=== PATIENT | female | born 1945 | race Caucasian/White ===

== ENCOUNTER → 2016-08-23 | Outpatient (CLI) | payer MEDICARE ==
[~2016-08-23] MED LIST: L.AC1CAP6 PO; LEVO75TA5 PO; LOSA50TA6 PO; OMEP40CA6 PO; OMNIPAQUE 350 MG/ML, 100ML BOTTLE ONE; ONDA4TAB10 PO; TRAM50TA2 PO; TRAZ100T15 PO
== END | disposition home or self-care (01) ==
LOC: CFH 11:37
PROVIDERS: ATTEND Surgery
DX: K31.6 Fistula of stomach and duodenum (principal); Z90.49 Acquired absence of other specified parts of digestive tract; Z98.84 Bariatric surgery status; Z98.890 Other specified postprocedural states; K63.89 Other specified diseases of intestine
CPT/HCPCS: 74160; 82565; Q9967

== ENCOUNTER 2016-09-01 19:34 | Emergency (ER) | payer MEDICARE ==
[~2016-09-01] VITALS: Ht 154.9 cm; Wt 90.0 kg
[~2016-09-01 19:34] MED LIST changes: -OMNIPAQUE 350 MG/ML, 100ML BOTTLE ONE
[2016-09-01] MEDS ORDERED: ONDANSETRON 2MG/ML, 2ML IVPush ONE ×2 (20:00→23:00)
[2016-09-01] MEDS ORDERED: FAMOTIDINE 20 MG/2 ML IVP ONE (20:00)
[2016-09-01] MEDS ORDERED: SODIUM CHLORIDE FLUSH 10ML SYR IVF ONE (20:00)
[2016-09-01] MEDS ORDERED: MAALOX/HYOSCYAMINE/LIDOCAINE 45 ML BOTTLE PO ONE (20:00)
[2016-09-01] MEDS ORDERED: GABA300C10 PO (20:05)
[2016-09-01] MEDS ORDERED: LOSA25TA2 PO (20:05)
[2016-09-01] MEDS ORDERED: OMEP20TA62 PO (20:05)
[2016-09-01] MEDS ORDERED: LEVO88TA4 PO (20:05)
[2016-09-01 20:22] LABS: HEMOGLOBIN 10.9 g/dL (11.7-16.4)
[2016-09-01] MEDS ORDERED: MAALOX/HYOSCYAMINE/LIDOCAINE 45 ML BOTTLE ONE (20:31)
[2016-09-01] MEDS ORDERED: FAMOTIDINE 20 MG/2 ML ONE (20:32)
[2016-09-01] MEDS ORDERED: ONDANSETRON 2MG/ML, 2ML ONE (20:32)
[2016-09-01 20:39] LABS: ASPARTATE AMINO TRANSFERASE 192 U/L (15-37); BLOOD UREA NITROGEN 14 mg/dL (7-18)
[2016-09-01] MEDS ORDERED: OMNIPAQUE 350 MG/ML, 100ML BOTTLE ONE (22:30)
[2016-09-01 22:33] LABS: IS PT STATUS REG ER OR PRE ER? YES
[2016-09-01] MEDS ORDERED: MORPHINE SULFATE 4 MG/ML, 1ML ONE (22:54)
[2016-09-01] MEDS ORDERED: MORPHINE SULFATE 4 MG/ML, 1ML IVPush PRN ×2 (23:00)
[2016-09-01 23:49] VITALS: BP 153/65
== END 2016-09-01 23:50 | disposition home or self-care (01) ==
LOC: ED 23:36
DX: K29.00 Acute gastritis without bleeding (principal); I10 Essential (primary) hypertension; E03.9 Hypothyroidism, unspecified; K21.9 Gastro-esophageal reflux disease without esophagitis; Z90.49 Acquired absence of other specified parts of digestive tract; Z87.891 Personal history of nicotine dependence
CPT/HCPCS: 36415; 74177; 76700; 80053; 81003; 83690; 84484; 85025; 93005; 96374; 96375; 99285; J2405; Q9967; S0028

== ENCOUNTER 2017-01-29 09:57 | Inpatient (IN) | payer MEDICARE ==
[~2017-01-29] VITALS: Ht 149.9 cm; Wt 88.3 kg
[~2017-01-29 09:57] MED LIST changes: +CHOL200040 PO; +GABA300C10 PO; +LEVO88TA4 PO; +LOSA25TA2 PO; +OMEP20TA62 PO
[2017-01-29] MEDS ORDERED: SODIUM CHLORIDE 0.9% 1,000 ML IV ONE (10:32)
[2017-01-29] MEDS ORDERED: SODIUM CHLORIDE FLUSH 10ML SYR IVF ONE (11:00)
[2017-01-29 11:03] LABS: PATH.CAST-FLAG NOT PRESENT; SPERM-FLAG NOT PRESENT; SRC-FLAG NOT PRESENT; XTAL-FLAG NOT PRESENT; YLC-FLAG NOT PRESENT
[2017-01-29 11:10] LABS: HEMATOCRIT 37.6 % (34.6-47.8); HEMOGLOBIN 12.2 g/dL (11.7-16.4); WHITE BLOOD COUNT 9.3 x10^3/uL (3.4-10)
[2017-01-29 11:22] LABS: ASPARTATE AMINO TRANSFERASE 40 U/L (15-37); BLOOD UREA NITROGEN 12 mg/dL (7-18)
[2017-01-29] MEDS ORDERED: SODIUM CHLORIDE 0.9% 1,000 ML IV SCH (14:15)
[2017-01-29] MEDS ORDERED: ONDANSETRON 2MG/ML, 2ML IVPush PRN (14:30)
[2017-01-29] MEDS ORDERED: ENOXAPARIN 40 MG/0.4 ML ONE (14:56)
[2017-01-29] MEDS ORDERED: POTASSIUM CHLORIDE 20 MEQ TAB.ER.PRT ONE (14:56)
[2017-01-29 14:59] LABS: ASPARTATE AMINO TRANSFERASE 34 U/L (15-37); BLOOD UREA NITROGEN 11 mg/dL (7-18)
[2017-01-29] MEDS ORDERED: POTASSIUM CHLORIDE 20 MEQ TAB.ER.PRT PO ONE (15:00)
[2017-01-29] MEDS: ENOXAPARIN 40 MG/0.4 ML SQ SCH (15:14)
[2017-01-29 15:37] LABS: HEMATOCRIT 39.4 % (34.6-47.8); HEMOGLOBIN 12.9 g/dL (11.7-16.4); WHITE BLOOD COUNT 11.4 x10^3/uL (3.4-10)
[2017-01-29] MEDS ORDERED: CHOLECALCIFEROL PO SCH (16:00)
[2017-01-29] MEDS: SODIUM CHLORIDE 0.9% 1,000 ML IV SCH (18:25)
[2017-01-29 19:26] VITALS: BP 138/75
[2017-01-29] MEDS ORDERED: MAGNESIUM SULFATE PMX 4GM/100M 100 ML IV ONE (22:00)
[2017-01-29] MEDS: CHOLECALCIFEROL 1,000 UNIT TABLET PO SCH (22:17)
[2017-01-29] MEDS: TRAZODONE 100MG TABLET PO SCH (22:17)
[2017-01-30 00:50] VITALS: BP 129/78
[2017-01-30] MEDS: LEVOTHYROXINE 75 MCG TABLET PO SCH (05:04)
[2017-01-30] MEDS: SODIUM CHLORIDE 0.9% 1,000 ML IV SCH ×4 (05:05→22:15)
[2017-01-30 07:07] VITALS: BP 138/82
[2017-01-30] MEDS: CHOLECALCIFEROL 1,000 UNIT TABLET PO SCH ×3 (08:59→20:29)
[2017-01-30] MEDS ORDERED: POTASSIUM CHLORIDE 20 MEQ TAB.ER.PRT PO ONE (13:00)
[2017-01-30 13:27] LABS: BLOOD UREA NITROGEN 9 mg/dL (7-18)
[2017-01-30] MEDS: ENOXAPARIN 40 MG/0.4 ML SQ SCH (14:46)
[2017-01-30 15:29] VITALS: BP 125/78
[2017-01-30] MEDS: OMEPRAZOLE 20 MG CAPSULE.DR PO SCH (17:52)
[2017-01-30] MEDS ORDERED: LOPERAMIDE 2 MG CAPSULE PO ONE (19:00)
[2017-01-30 20:07] VITALS: BP 103/64
[2017-01-30] MEDS: TRAZODONE 100MG TABLET PO SCH (20:30)
[2017-01-31 08:18] LABS: ASPARTATE AMINO TRANSFERASE 9 U/L (15-37); BLOOD UREA NITROGEN 8 mg/dL (7-18); HEMATOCRIT 32.8 % (34.6-47.8); HEMOGLOBIN 10.7 g/dL (11.7-16.4)
[2017-01-31] MEDS ORDERED: LOPERAMIDE 2 MG CAPSULE PO SCH (09:00)
[2017-01-31] MEDS ORDERED: LOSARTAN 50MG TABLET PO SCH (09:00)
[2017-01-31] MEDS: LEVOTHYROXINE 75 MCG TABLET PO SCH (09:05)
[2017-01-31] MEDS: CHOLECALCIFEROL 1,000 UNIT TABLET PO SCH (09:06)
[2017-01-31] MEDS: OMEPRAZOLE 20 MG CAPSULE.DR PO SCH (09:06)
[2017-01-31] MEDS ORDERED: LOPE2CAP PO (09:10)
== END 2017-01-31 11:45 | disposition home or self-care (01) | DRG 392 ==
LOC: ED 11:47 → EDIP 13:22 → 5SO 18:16 → DCLOUNGE 01-31 11:30
PROVIDERS: ADMIT Hospitalist; ATTEND Hospitalist
DX: R19.7 Diarrhea, unspecified (principal); E44.1 Mild protein-calorie malnutrition; I10 Essential (primary) hypertension; D64.9 Anemia, unspecified; E11.9 Type 2 diabetes mellitus without complications; E03.9 Hypothyroidism, unspecified; E87.6 Hypokalemia; E86.0 Dehydration; K21.9 Gastro-esophageal reflux disease without esophagitis; M17.0 Bilateral primary osteoarthritis of knee; Z82.49 Family history of ischemic heart disease and other diseases of the circulatory system; Z87.891 Personal history of nicotine dependence; Z98.84 Bariatric surgery status; Z90.49 Acquired absence of other specified parts of digestive tract; Z88.8 Allergy status to other drugs, medicaments and biological substances; Z68.39 Body mass index [BMI] 39.0-39.9, adult
CPT/HCPCS: 36415; 76700; 80048; 80053; 81001; 82040; 83690; 83735; 85025; 87086; 87324; 87328; 87329; 89055; 96372; J1650; J3475; J7030

== ENCOUNTER → 2017-02-06 | Outpatient (CLI) | payer MEDICARE ==
[~2017-02-06] MED LIST changes: +LOPE2CAP PO; +OMNIPAQUE 350 MG/ML, 100ML BOTTLE ONE
== END | disposition home or self-care (01) ==
LOC: CFH 13:06
PROVIDERS: ATTEND Nurse Practitioner Family
DX: K57.30 Diverticulosis of large intestine without perforation or abscess without bleeding (principal); K59.8 Other specified functional intestinal disorders; M51.36 Other intervertebral disc degeneration, lumbar region; R19.7 Diarrhea, unspecified; Z98.84 Bariatric surgery status; Z90.49 Acquired absence of other specified parts of digestive tract
CPT/HCPCS: 74177; Q9967

== ENCOUNTER → 2017-02-20 | Outpatient (CLI) | payer MEDICARE ==
[~2017-02-20] MED LIST changes: -OMNIPAQUE 350 MG/ML, 100ML BOTTLE ONE
== END | disposition home or self-care (01) ==
LOC: CFH 10:42
PROVIDERS: ATTEND Nurse Practitioner Family
DX: Z12.31 Encounter for screening mammogram for malignant neoplasm of breast (principal); M81.0 Age-related osteoporosis without current pathological fracture; N95.8 Other specified menopausal and perimenopausal disorders
CPT/HCPCS: 77080; G0202

== ENCOUNTER → 2017-02-21 | Outpatient (CLI) | payer MEDICARE | END | disposition home or self-care (01) | LOC: CFH 09:48 | PROVIDERS: ATTEND Nurse Practitioner Family | DX: M25.512 Pain in left shoulder (principal); M25.511 Pain in right shoulder ==

== ENCOUNTER → 2017-04-20 | Outpatient (CLI) | payer MEDICARE | END | disposition home or self-care (01) | LOC: CFH 09:48 → MERGE 10:15 | PROVIDERS: ATTEND Family Medicine | DX: M51.36 Other intervertebral disc degeneration, lumbar region (principal); M51.26 Other intervertebral disc displacement, lumbar region; M51.27 Other intervertebral disc displacement, lumbosacral region; M47.896 Other spondylosis, lumbar region; M25.551 Pain in right hip; M25.552 Pain in left hip | CPT/HCPCS: 72148; 73523 ==

== ENCOUNTER → 2018-03-15 | Outpatient (CLI) | payer MEDICARE ==
[~2018-03-15] MED LIST changes: -LOSA50TA6 PO; +LOSA50TA7 PO; +TRAZ-137 PO; -TRAZ100T15 PO
== END | disposition home or self-care (01) ==
LOC: RAD 07:28
PROVIDERS: ATTEND Family Medicine
DX: K25.9 Gastric ulcer, unspecified as acute or chronic, without hemorrhage or perforation (principal); K31.84 Gastroparesis
CPT/HCPCS: 74245

== ENCOUNTER → 2018-03-29 | Outpatient (CLI) | payer MEDICARE ==
[2018-03-29 13:52] LABS: BASOPHILS # (AUTO) 0.04 x10^3/uL (0-0.1); BASOPHILS % (AUTO) 1 % (0-1); EOSINOPHILS # (AUTO) 0.12 x10^3/uL (0-0.4); EOSINOPHILS % (AUTO) 2 % (1-7); LYMPHOCYTES # (AUTO) 2.82 x10^3/uL (1-3.4); LYMPHOCYTES % (AUTO) 36 % (22-44); MD NO; MEAN CORPUSCULAR HEMOGLOBIN 29.9 pg (27.0-34.8); MEAN CORPUSCULAR HGB CONC 33.2 g/dL (32.4-35.8); MEAN CORPUSCULAR VOLUME 90.1 fL (80-100); MEAN PLATELET VOLUME 7.2 fL (7.4-10.4); MONOCYTES # (AUTO) 0.52 x10^3/uL (0.2-0.8); MONOCYTES % (AUTO) 7 % (2-9); NEUTROPHILS # (AUTO) 4.29 x10^3/uL (1.8-6.8); NEUTROPHILS % (AUTO) 55 % (42-75); PLATELET COUNT 282 x10^3/uL (130-400); RED BLOOD COUNT 4.48 x10^6/uL (3.82-5.3); RED CELL DISTRIBUTION WIDTH 15.8 % (9.6-15.2)
[2018-03-29 14:01] LABS: INTERNATIONAL NORMALIZED RATIO 0.96 (0.93-1.1); PROTHROMBIN TIME 9.9 Seconds (9.6-11.5)
[2018-03-29 14:05] LABS: ALANINE AMINOTRANSFERASE 16 U/L (12-78); ALBUMIN 3.3 g/dL (3.4-5.0); ANION GAP 7 mmol/L (5-15); CALCIUM 8.5 mg/dL (8.5-10.1); CHLORIDE 109 mmol/L (98-107); CREATININE 0.98 mg/dL (0.55-1.02)
[2018-03-29 14:08] LABS: % IRON SATURATION 15 % (20-55); ALKALINE PHOSPHATASE 122 U/L (45-117); BILIRUBIN,TOTAL 0.5 mg/dL (0.2-1.0); IRON LEVEL 57 mcg/dL (50-170); TOTAL IRON BINDING CAPACITY 386 mcg/dL (250-450); TOTAL PROTEIN 7.1 g/dL (6.4-8.2)
== END | disposition home or self-care (01) ==
LOC: LAB 13:30
PROVIDERS: ATTEND Family Medicine
DX: D64.9 Anemia, unspecified (principal); R42 Dizziness and giddiness
CPT/HCPCS: 36415; 80053; 82150; 82728; 83540; 83550; 83690; 85025; 85610

== ENCOUNTER 2018-04-01 12:16 | Inpatient (IN) | payer MEDICARE ==
[~2018-04-01] VITALS: Ht 152.4 cm; Wt 90.5 kg
[2018-04-01 13:39] LABS: BASOPHILS # (AUTO) 0.06 x10^3/uL (0-0.1); BASOPHILS % (AUTO) 1 % (0-1); EOSINOPHILS # (AUTO) 0.11 x10^3/uL (0-0.4); EOSINOPHILS % (AUTO) 2 % (1-7); LYMPHOCYTES # (AUTO) 2.31 x10^3/uL (1-3.4); LYMPHOCYTES % (AUTO) 33 % (22-44); MD NO; MEAN CORPUSCULAR HEMOGLOBIN 30.3 pg (27.0-34.8); MEAN CORPUSCULAR HGB CONC 33.5 g/dL (32.4-35.8); MEAN CORPUSCULAR VOLUME 90.4 fL (80-100); MEAN PLATELET VOLUME 7.4 fL (7.4-10.4); MONOCYTES # (AUTO) 0.56 x10^3/uL (0.2-0.8); MONOCYTES % (AUTO) 8 % (2-9); NEUTROPHILS # (AUTO) 3.96 x10^3/uL (1.8-6.8); NEUTROPHILS % (AUTO) 57 % (42-75); PLATELET COUNT 264 x10^3/uL (130-400); RED BLOOD COUNT 4.31 x10^6/uL (3.82-5.3); RED CELL DISTRIBUTION WIDTH 16.1 % (9.6-15.2)
[2018-04-01 13:50] LABS: ALANINE AMINOTRANSFERASE 16 U/L (12-78); ANION GAP 9 mmol/L (5-15); CALCIUM 8.1 mg/dL (8.5-10.1); CHLORIDE 110 mmol/L (98-107); CREATININE 0.83 mg/dL (0.55-1.02)
[2018-04-01 13:52] LABS: ALKALINE PHOSPHATASE 122 U/L (45-117); BILIRUBIN,TOTAL 0.3 mg/dL (0.2-1.0); TOTAL PROTEIN 6.8 g/dL (6.4-8.2)
[2018-04-01] MEDS ORDERED: MECLIZINE CHEWABLE 25 MG TAB ONE (15:18)
[2018-04-01] MEDS ORDERED: ONDANSETRON ODT 4 MG ONE (15:19)
[2018-04-01] MEDS ORDERED: MAALOX/HYOSCYAMINE/LIDOCAINE 45 ML BTL ONE (15:19)
[2018-04-01] MEDS ORDERED: MECLIZINE CHEWABLE 25 MG TAB PO ONE (15:30)
[2018-04-01] MEDS ORDERED: MAALOX/HYOSCYAMINE/LIDOCAINE 45 ML BTL PO ONE (15:30)
[2018-04-01] MEDS ORDERED: ONDANSETRON ODT 4 MG PO ONE (15:30)
[2018-04-01] MEDS ORDERED: NS + 20MEQ KCL 1,000 ML IV SCH (16:20)
[2018-04-01] MEDS ORDERED: morphine SULFATE 10 MG/ML, 1ML IVPush PRN (16:30)
[2018-04-01] MEDS ORDERED: LABETALOL 5MG/ML, 20ML IVPush PRN (16:30)
[2018-04-01] MEDS ORDERED: ACETAMINOPHEN 325 MG TABLET PO PRN (16:30)
[2018-04-01] MEDS ORDERED: DOCUSATE 100 MG CAPSULE PO PRN (16:30)
[2018-04-01] MEDS ORDERED: ONDANSETRON 2MG/ML, 2ML IVPush PRN (16:30)
[2018-04-01] MEDS ORDERED: MECLIZINE CHEWABLE 25 MG TAB PO PRN (16:30)
[2018-04-01] MEDS ORDERED: hydrALAzine 20 MG/ML, 1ML IV PRN (16:30)
[2018-04-01] MEDS ORDERED: ENALAPRILAT 1.25 MG/ML, 2ML IV PRN (16:30)
[2018-04-01] MEDS ORDERED: POLYETHYLENE GLYCOL 17 GM PACKET PO PRN (16:30)
[2018-04-01] MEDS ORDERED: HYDROcodone/APAP 5/325 TABLET PO PRN (16:30)
[2018-04-01 17:24] LABS: MICROSCOPIC AUTO
[2018-04-01 17:33] LABS: CULTURE INDICATED? YES
[2018-04-01] MEDS ORDERED: OMNIPAQUE 350 MG/ML, 100ML BOTTLE ONE (17:41)
[2018-04-01 18:01] VITALS: BP 129/60
[2018-04-01 19:36] VITALS: BP 136/68
[2018-04-01] MEDS: TRAZODONE 100MG TABLET PO SCH (20:03)
[2018-04-01] MEDS: OMEPRAZOLE 20 MG CAPSULE.DR PO SCH (20:06)
[2018-04-02 01:55] VITALS: BP 114/71
[2018-04-02 05:31] LABS: ANION GAP 7 mmol/L (5-15); CALCIUM 7.6 mg/dL (8.5-10.1); CHLORIDE 112 mmol/L (98-107)
[2018-04-02 05:32] LABS: CREATININE 0.89 mg/dL (0.55-1.02)
[2018-04-02 06:46] VITALS: BP 134/66
[2018-04-02] MEDS ORDERED: PROPOFOL 10 MG/ML, 20ML ONE (10:49)
[2018-04-02] MEDS ORDERED: FENTANYL PF 100 MCG/2ML ONE (10:49)
[2018-04-02] MEDS ORDERED: MIDAZOLAM 1 MG/ML, 2ML ONE (10:49)
[2018-04-02] MEDS ORDERED: MORPHINE SULFATE 4 MG/ML, 1ML IVPush PRN (11:00)
[2018-04-02] MEDS ORDERED: MEPERIDINE/PF 25MG/0.5ML IVPush PRN (11:00)
[2018-04-02] MEDS ORDERED: ACETAMINOPHEN 325 MG TABLET PO PRN (11:00)
[2018-04-02] MEDS ORDERED: FENTANYL PF 100 MCG/2ML IV PRN (11:00)
[2018-04-02] MEDS ORDERED: ONDANSETRON 2MG/ML, 2ML IV PRN (11:00)
[2018-04-02] MEDS ORDERED: OXYcodone 5 MG/5 ML ORAL.SOL UDC PO PRN (11:00)
[2018-04-02 12:40] VITALS: BP 122/57
[2018-04-02] MEDS: LOSARTAN 50MG TABLET PO SCH (13:49)
[2018-04-02] MEDS: OMEPRAZOLE 20 MG CAPSULE.DR PO SCH ×2 (13:49→20:19)
[2018-04-02] MEDS: SENNA/DOCUSATE TABLET PO SCH (13:49)
[2018-04-02] MEDS: LEVOTHYROXINE 88 MCG TABLET PO SCH (13:49)
[2018-04-02 19:49] VITALS: BP 126/74
[2018-04-02] MEDS: TRAZODONE 100MG TABLET PO SCH (20:19)
[2018-04-03 01:45] VITALS: BP 137/74
[2018-04-03 06:37] VITALS: BP 130/79
[2018-04-03] MEDS: LOSARTAN 50MG TABLET PO SCH (08:29)
[2018-04-03] MEDS: SENNA/DOCUSATE TABLET PO SCH (08:29)
[2018-04-03] MEDS: LEVOTHYROXINE 88 MCG TABLET PO SCH (08:29)
[2018-04-03] MEDS: OMEPRAZOLE 20 MG CAPSULE.DR PO SCH (08:29)
[2018-04-03 12:05] VITALS: BP 124/75
== END 2018-04-03 16:32 | disposition home health service (06) | DRG 92 ==
LOC: SUATTDRO 16:06 → ED 16:52 → EDIP 17:00 → 4EST 19:08 → DCLOUNGE 04-03 16:15
PROVIDERS: ADMIT Family Medicine; ATTEND Family Medicine
PROC: 0DJ08ZZ Inspection of Upper Intestinal Tract, Via Natural or Artificial Opening Endoscopic (ICD-10-PCS; principal; 2018-04-02 13:30)
DX: R27.0 Ataxia, unspecified (principal); E44.0 Moderate protein-calorie malnutrition; K21.9 Gastro-esophageal reflux disease without esophagitis; I10 Essential (primary) hypertension; E03.9 Hypothyroidism, unspecified; M19.90 Unspecified osteoarthritis, unspecified site; K76.89 Other specified diseases of liver; E61.1 Iron deficiency; E11.9 Type 2 diabetes mellitus without complications; M51.36 Other intervertebral disc degeneration, lumbar region; Z90.49 Acquired absence of other specified parts of digestive tract; Z98.84 Bariatric surgery status; Z82.49 Family history of ischemic heart disease and other diseases of the circulatory system; Z88.8 Allergy status to other drugs, medicaments and biological substances
CPT/HCPCS: 36415; 74177; 76700; 80048; 80053; 81001; 83690; 85025; 86677; 87086; 93005; 99285; G0378; J2250; J2405; J2704; J3010; J3480; Q0162; Q9967

== ENCOUNTER 2019-05-07 14:29 | Emergency (ER) | payer MEDICARE ==
[~2019-05-07] VITALS: Ht 152.4 cm; Wt 102.3 kg
[~2019-05-07 14:29] MED LIST changes: +LOSA50TA14 PO; -LOSA50TA7 PO; +OMEP40CA42 PO; -OMEP40CA6 PO
--- NOTE | 2019-05-07 16:34 | NUR ---
Patient resting in bed. IV access obtained.
[2019-05-07 16:49] LABS: BASOPHILS # (AUTO) 0.07 x10^3/uL (0-0.1); BASOPHILS % (AUTO) 1 % (0-1); EOSINOPHILS # (AUTO) 0.08 x10^3/uL (0-0.4); EOSINOPHILS % (AUTO) 1 % (1-7); LYMPHOCYTES # (AUTO) 2.48 x10^3/uL (1-3.4); LYMPHOCYTES % (AUTO) 25 % (22-44); MD NO; MEAN CORPUSCULAR HGB CONC 32.7 g/dL (32.4-35.8); MEAN CORPUSCULAR VOLUME 91.9 fL (80-100); MEAN PLATELET VOLUME 7.6 fL (7.4-10.4); MONOCYTES # (AUTO) 0.68 x10^3/uL (0.2-0.8); MONOCYTES % (AUTO) 7 % (2-9); NEUTROPHILS % (AUTO) 66 % (42-75); PLATELET COUNT 270 x10^3/uL (130-400); RED BLOOD COUNT 4.38 x10^6/uL (3.82-5.3); RED CELL DISTRIBUTION WIDTH 15.3 % (9.6-15.2)
[2019-05-07 16:53] LABS: ALBUMIN 3.1 g/dL (3.4-5.0); ANION GAP 5 mmol/L (5-15); CALCIUM 8.8 mg/dL (8.5-10.1); CHLORIDE 114 mmol/L (98-107)
[2019-05-07 16:57] LABS: ALANINE AMINOTRANSFERASE 20 U/L (12-78); ALKALINE PHOSPHATASE 135 U/L (45-117); BILIRUBIN,TOTAL 0.4 mg/dL (0.2-1.0); CREATININE 1.01 mg/dL (0.55-1.02); TOTAL PROTEIN 7.1 g/dL (6.4-8.2)
[2019-05-07] MEDS ORDERED: OMNIPAQUE 350 MG/ML, 100ML BOTTLE ONE (17:26)
[2019-05-07] MEDS ORDERED: MECLIZINE CHEWABLE 25 MG TAB PO ONE (18:00)
[2019-05-07] MEDS ORDERED: DICYCLOMINE 20 MG TABLET PO ONE (18:00)
[2019-05-07] MEDS ORDERED: MECLIZINE CHEWABLE 25 MG TAB ONE (18:05)
[2019-05-07] MEDS ORDERED: DICYCLOMINE 20 MG TABLET ONE (18:05)
[2019-05-07 18:07] LABS: MICROSCOPIC NOT IND
--- NOTE | 2019-05-07 18:09 | NUR ---
Patient resting in bed. NAD noted. Reports abd cramping and vertigo. Medicated per order.
[2019-05-07 18:16] LABS: CULTURE INDICATED? NO
--- NOTE | 2019-05-07 18:37 | NUR ---
Patient discharged home, daughter with patient. Discharge instructions provided all questions and concerns addressed. Patient required standby preschool assistant to transfer to wheelchair. All belongings with patient. IV dc'd cath intact.
[2019-05-07 18:38] VITALS: BP 127/70
== END 2019-05-07 18:44 | disposition home or self-care (01) ==
LOC: ED 17:34
DX: R10.84 Generalized abdominal pain (principal); R53.83 Other fatigue; R19.7 Diarrhea, unspecified; R53.1 Weakness; I10 Essential (primary) hypertension; E03.9 Hypothyroidism, unspecified; K21.9 Gastro-esophageal reflux disease without esophagitis; Z90.89 Acquired absence of other organs; Z90.49 Acquired absence of other specified parts of digestive tract
CPT/HCPCS: 36415; 74177; 80053; 81003; 83690; 83735; 85025; 99284; Q9967

== ENCOUNTER → 2020-03-05 | Outpatient (CLI) | payer MEDICARE ==
[~2020-03-05] MED LIST changes: +OMNIPAQUE 350 MG/ML, 100ML BOTTLE ONE; -TRAZ-137 PO; +TRAZ-175 PO
== END | disposition home or self-care (01) ==
LOC: CFH 09:34
PROVIDERS: ATTEND Internal Medicine
DX: K44.9 Diaphragmatic hernia without obstruction or gangrene (principal); K76.89 Other specified diseases of liver; R19.09 Other intra-abdominal and pelvic swelling, mass and lump; M47.816 Spondylosis without myelopathy or radiculopathy, lumbar region; Z90.49 Acquired absence of other specified parts of digestive tract
CPT/HCPCS: 74177; Q9967

== ENCOUNTER 2020-03-19 06:07 | Day surgery (SDC) | payer MEDICARE ==
[~2020-03-19] VITALS: Ht 152.4 cm; Wt 101.0 kg
[~2020-03-19 06:07] MED LIST changes: -OMNIPAQUE 350 MG/ML, 100ML BOTTLE ONE
[2020-03-19] MEDS ORDERED: SODIUM CHLORIDE 0.9% 1,000 ML IV SCH (07:00)
[2020-03-19 07:20] VITALS: BP 179/73
[2020-03-19] MEDS ORDERED: NALOXONE 1 MG/ML, 2ML ONE (08:05)
[2020-03-19] MEDS ORDERED: MIDAZOLAM 1 MG/ML, 5ML ONE (08:05)
[2020-03-19] MEDS ORDERED: FLUMAZENIL 0.1 MG/1 ML, 5ML ONE (08:05)
[2020-03-19] MEDS ORDERED: FENTANYL PF 100 MCG/2ML ONE (08:05)
== END 2020-03-19 09:48 | disposition home or self-care (01) ==
LOC: OUT 06:07
PROVIDERS: ATTEND Internal Medicine
DX: R19.07 Generalized intra-abdominal and pelvic swelling, mass and lump (principal); Z91.040 Latex allergy status
CPT/HCPCS: 49180; 77012; 88305; 99156; 99157; J2250; J3010; J7030; J2310

== ENCOUNTER → 2020-04-01 | Outpatient (CLI) | payer MEDICARE | END | disposition home or self-care (01) | LOC: PETCFH 07:51 | PROVIDERS: ATTEND Internal Medicine | DX: C48.2 Malignant neoplasm of peritoneum, unspecified (principal); K44.9 Diaphragmatic hernia without obstruction or gangrene | CPT/HCPCS: 78815; A9552 ==

== ENCOUNTER → 2020-07-13 | Outpatient (CLI) | payer MEDICARE ==
[~2020-07-13] MED LIST changes: +OMNIPAQUE 350 MG/ML, 100ML BOTTLE ONE
== END | disposition home or self-care (01) ==
LOC: CFH 12:07
PROVIDERS: ATTEND Surgery
DX: K44.9 Diaphragmatic hernia without obstruction or gangrene (principal); K57.30 Diverticulosis of large intestine without perforation or abscess without bleeding; R93.3 Abnormal findings on diagnostic imaging of other parts of digestive tract; K76.89 Other specified diseases of liver
CPT/HCPCS: 74177; Q9967

== ENCOUNTER 2020-10-22 17:18 | Inpatient (IN) | payer MEDICARE ==
[~2020-10-22] VITALS: Ht 152.4 cm; Wt 99.1 kg
[~2020-10-22 17:18] MED LIST changes: -OMNIPAQUE 350 MG/ML, 100ML BOTTLE ONE
[2020-10-22] MEDS ORDERED: SODIUM CHLORIDE FLUSH 10ML SYR IVF ONE (18:00)
--- NOTE | 2020-10-22 18:38 | NUR ---
PT AMBULATORY TO ROOM 34 W/ C/OO MID EPIGASTRIC ABD PAIN STARTED 3 DAYS AGO AND BARBA. PT STATES SHE ALSO HAS HX GERD. STATES IT FEELS SIMILAR TO GERD. HAS HX ESOPHAGEAL TEAR. PT STATES SHE IS HAVING N/V W/ BILE. DENIES HEMATEMESIS. PT RESTING ON GURNEY. NADN. MONITORS APPLIED. VSS. WARM BLANKET PROVIDED. PIV INITIATED.
[2020-10-22] MEDS ORDERED: ONDANSETRON 2MG/ML, 2ML ONE ×2 (18:39→19:28)
[2020-10-22 18:50] LABS: MICROSCOPIC INDICATED
--- NOTE | 2020-10-22 18:51 | NUR ---
REPORT FROM ALISTAIR RICHARDSON
--- NOTE | 2020-10-22 18:51 | NUR ---
REPORT GIVEN TO SARA CRUZ RN'S.
[2020-10-22 18:55] LABS: BASOPHILS % (AUTO) 1 % (0-1); EOSINOPHILS % (AUTO) 1 % (1-7); LYMPHOCYTES % (AUTO) 33 % (22-44); MD NO; MEAN CORPUSCULAR HEMOGLOBIN 24.6 pg (27.0-34.8); MEAN CORPUSCULAR HGB CONC 32.1 g/dL (32.4-35.8); MEAN PLATELET VOLUME 7.5 fL (7.4-10.4); MONOCYTES % (AUTO) 8 % (2-9); NEUTROPHILS % (AUTO) 57 % (42-75); PLATELET COUNT 265 x10^3/uL (130-400); RED BLOOD COUNT 4.28 x10^6/uL (3.82-5.3); RED CELL DISTRIBUTION WIDTH 15.7 % (9.6-15.2)
[2020-10-22] MEDS ORDERED: ONDANSETRON 2MG/ML, 2ML IVPush ONE ×2 (19:00→19:30)
--- NOTE | 2020-10-22 19:03 | NUR ---
PT RESTING COMFORTABLY IN BED, FAMILY AT BEDSIDE, REQUEST PILLOW
[2020-10-22 19:04] LABS: ALBUMIN 3.3 g/dL (3.4-5.0); ANION GAP 5 mmol/L (5-15); CALCIUM 8.7 mg/dL (8.5-10.1); CHLORIDE 108 mmol/L (98-107)
[2020-10-22 19:11] LABS: ALANINE AMINOTRANSFERASE 12 U/L (12-78); ALKALINE PHOSPHATASE 136 U/L (45-117); BILIRUBIN,TOTAL 0.4 mg/dL (0.2-1.0); CREATININE 0.79 mg/dL (0.55-1.02); TOTAL PROTEIN 7.4 g/dL (6.4-8.2); TROPONIN I < 0.015 ng/mL (0.000-0.045)
--- NOTE | 2020-10-22 19:26 | NUR ---
PILLOW PROVIDER PER PT REQUEST
[2020-10-22] MEDS ORDERED: MORPHINE SULFATE 4 MG/ML, 1ML ONE (19:28)
[2020-10-22] MEDS ORDERED: FAMOTIDINE 20 MG/2 ML ONE (19:28)
[2020-10-22] MEDS ORDERED: MAALOX/HYOSCYAMINE/LIDOCAINE 45 ML BTL ONE (19:29)
[2020-10-22] MEDS ORDERED: FAMOTIDINE 20 MG/2 ML IVPush ONE (19:30)
[2020-10-22] MEDS ORDERED: MORPHINE SULFATE 4 MG/ML, 1ML IVPush PRN (19:30)
[2020-10-22] MEDS ORDERED: MAALOX/HYOSCYAMINE/LIDOCAINE 45 ML BTL PO ONE (19:30)
--- NOTE | 2020-10-22 19:30 | NUR ---
PT TO CT
[2020-10-22] MEDS ORDERED: OMNIPAQUE 350 MG/ML, 100ML BOTTLE ONE (19:34)
[2020-10-22] MEDS ORDERED: SODIUM CHLORIDE FLUSH 10ML SYR IVF PRN (21:30)
[2020-10-22] MEDS ORDERED: SODIUM CHLORIDE 0.9% 1,000 ML IV ONE (21:30)
[2020-10-22] MEDS ORDERED: CEFTRIAXONE 1,000 MG in DEXTROSE 5% 50 ML IVPB ONE (21:30)
--- NOTE | 2020-10-22 22:19 | NUR ---
REPORT TO SORIN RICHARDSON
[2020-10-22] MEDS ORDERED: LEVO100T5 PO (22:30)
[2020-10-22 23:33] VITALS: BP 174/81
[2020-10-23] MEDS ORDERED: BISACODYL 10 MG SUPP PR PRN (00:30)
[2020-10-23] MEDS ORDERED: ENOXAPARIN 40 MG/0.4 ML SQ SCH (00:30)
[2020-10-23] MEDS ORDERED: ACETAMINOPHEN 325 MG TABLET PO PRN (00:30)
[2020-10-23] MEDS ORDERED: MELATONIN 5 MG TABLET PO PRN (00:30)
[2020-10-23 02:00] VITALS: BP 141/67
[2020-10-23] MEDS: SODIUM CHLORIDE 0.9% 1,000 ML IV SCH ×3 (04:07→22:58)
[2020-10-23] MEDS ORDERED: SUCR1TAB PO (04:15)
[2020-10-23] MEDS ORDERED: PANT40TA3 PO (04:31)
[2020-10-23] MEDS ORDERED: GABA-826 PO (04:31)
[2020-10-23 06:12] LABS: BASOPHILS % (AUTO) 1 % (0-1); EOSINOPHILS % (AUTO) 1 % (1-7); LYMPHOCYTES % (AUTO) 39 % (22-44); MEAN CORPUSCULAR HEMOGLOBIN 24.9 pg (27.0-34.8); MEAN CORPUSCULAR HGB CONC 32.5 g/dL (32.4-35.8); MEAN PLATELET VOLUME 7.3 fL (7.4-10.4); MONOCYTES % (AUTO) 8 % (2-9); NEUTROPHILS % (AUTO) 51 % (42-75); PLATELET COUNT 217 x10^3/uL (130-400); RED BLOOD COUNT 3.62 x10^6/uL (3.82-5.3); RED CELL DISTRIBUTION WIDTH 15.9 % (9.6-15.2)
[2020-10-23 06:13] LABS: MD NO
[2020-10-23 06:18] LABS: ANION GAP 6 mmol/L (5-15); CALCIUM 7.9 mg/dL (8.5-10.1); CHLORIDE 112 mmol/L (98-107)
[2020-10-23 06:29] LABS: % IRON SATURATION 8 % (20-55); IRON LEVEL 29 mcg/dL (50-170); TOTAL IRON BINDING CAPACITY 383 mcg/dL (250-450)
[2020-10-23 06:43] LABS: FREE T4 (FREE THYROXINE) 0.86 ng/dL (0.76-1.46)
[2020-10-23 07:00] VITALS: BP 146/78
[2020-10-23] MEDS: LEVOTHYROXINE 100 MCG TABLET PO SCH (08:29)
[2020-10-23] MEDS: CEFTRIAXONE 1,000 MG in DEXTROSE 5% 50 ML IVPB SCH (08:50)
[2020-10-23] MEDS ORDERED: CEFTRIAXONE 1,000 MG in DEXTROSE 5% 50 ML IVPB SCH (09:30)
[2020-10-23] MEDS ORDERED: CALCIUM CARBONATE 500 MG TAB.CHEW PO PRN (09:30)
[2020-10-23] MEDS ORDERED: ONDANSETRON 2MG/ML, 2ML IVPush PRN (12:30)
[2020-10-23 12:42] VITALS: BP 159/77
[2020-10-23] MEDS: SUCRALFATE 1 GM/10 ML UDC PO SCH ×2 (17:42→20:47)
[2020-10-23] MEDS: METOCLOPRAMIDE 5 MG/ML, 2ML IVPush SCH ×2 (17:44→23:49)
[2020-10-23] MEDS ORDERED: MAALOX/HYOSCYAMINE/LIDOCAINE 45 ML BTL PO ONE (18:00)
[2020-10-23 20:35] VITALS: BP 147/77
[2020-10-23] MEDS: GABAPENTIN 300 MG CAPSULE PO SCH (20:47)
[2020-10-23] MEDS: TRAZODONE 100MG TABLET PO SCH (20:47)
[2020-10-23] MEDS: PANTOPRAZOLE 40 MG IV IVPush SCH (20:48)
[2020-10-23] MEDS: ENOXAPARIN 30 MG/0.3 ML SQ SCH (20:48)
[2020-10-24 02:05] VITALS: BP 149/77
[2020-10-24 06:07] LABS: BASOPHILS % (AUTO) 1 % (0-1); EOSINOPHILS % (AUTO) 2 % (1-7); LYMPHOCYTES % (AUTO) 40 % (22-44); MEAN CORPUSCULAR HGB CONC 32.1 g/dL (32.4-35.8); MEAN PLATELET VOLUME 7.2 fL (7.4-10.4); MONOCYTES % (AUTO) 10 % (2-9); NEUTROPHILS % (AUTO) 48 % (42-75); PLATELET COUNT 226 x10^3/uL (130-400); RED BLOOD COUNT 3.48 x10^6/uL (3.82-5.3); RED CELL DISTRIBUTION WIDTH 15.8 % (9.6-15.2)
[2020-10-24 06:09] LABS: MD NO
[2020-10-24 06:21] LABS: ALANINE AMINOTRANSFERASE 10 U/L (12-78); ALBUMIN 2.6 g/dL (3.4-5.0); ANION GAP 5 mmol/L (5-15); CALCIUM 8.4 mg/dL (8.5-10.1); CHLORIDE 113 mmol/L (98-107); CREATININE 0.75 mg/dL (0.55-1.02)
[2020-10-24 06:22] LABS: ALKALINE PHOSPHATASE 111 U/L (45-117); BILIRUBIN,TOTAL 0.3 mg/dL (0.2-1.0); TOTAL PROTEIN 5.9 g/dL (6.4-8.2)
[2020-10-24 07:04] VITALS: BP 171/81
[2020-10-24] MEDS: GABAPENTIN 300 MG CAPSULE PO SCH ×3 (08:23→21:32)
[2020-10-24] MEDS: LEVOTHYROXINE 100 MCG TABLET PO SCH (08:23)
[2020-10-24] MEDS: SUCRALFATE 1 GM/10 ML UDC PO SCH ×4 (08:29→21:32)
[2020-10-24] MEDS ORDERED: LABETALOL 5MG/ML, 20ML IVPush PRN (08:30)
[2020-10-24] MEDS: PANTOPRAZOLE 40 MG IV IVPush SCH ×2 (08:31→21:33)
[2020-10-24] MEDS: IRON SUCROSE COMPLEX 100MG/5ML IV SCH (08:37)
[2020-10-24] MEDS: ENOXAPARIN 30 MG/0.3 ML SQ SCH ×2 (08:40→21:33)
[2020-10-24] MEDS: CEFTRIAXONE 1,000 MG in DEXTROSE 5% 50 ML IVPB SCH (08:41)
[2020-10-24] MEDS ORDERED: FLUCONAZOLE 200 MG TABLET PO SCH (09:00)
[2020-10-24 12:00] VITALS: BP 169/67
[2020-10-24] MEDS: SODIUM CHLORIDE 0.9% 1,000 ML IV SCH (12:00)
[2020-10-24] MEDS: LOSARTAN 50MG TABLET PO SCH (13:33)
[2020-10-24 19:26] VITALS: BP 165/82
[2020-10-24] MEDS: TRAZODONE 100MG TABLET PO SCH (21:33)
[2020-10-25 01:40] VITALS: BP 120/44
[2020-10-25 02:09] VITALS: BP 136/64
[2020-10-25 06:41] LABS: BASOPHILS % (AUTO) 1 % (0-1); EOSINOPHILS % (AUTO) 2 % (1-7); LYMPHOCYTES % (AUTO) 37 % (22-44); MEAN CORPUSCULAR HEMOGLOBIN 24.9 pg (27.0-34.8); MONOCYTES % (AUTO) 9 % (2-9); NEUTROPHILS % (AUTO) 51 % (42-75); PLATELET COUNT 226 x10^3/uL (130-400); RED BLOOD COUNT 3.42 x10^6/uL (3.82-5.3); RED CELL DISTRIBUTION WIDTH 15.6 % (9.6-15.2)
[2020-10-25 06:43] LABS: MD NO
[2020-10-25 07:06] LABS: ANION GAP 4 mmol/L (5-15); CALCIUM 8.4 mg/dL (8.5-10.1); CHLORIDE 113 mmol/L (98-107)
[2020-10-25 07:07] LABS: CREATININE 0.82 mg/dL (0.55-1.02)
[2020-10-25 07:12] VITALS: BP 140/82
[2020-10-25] MEDS: LEVOTHYROXINE 100 MCG TABLET PO SCH (08:30)
[2020-10-25] MEDS: GABAPENTIN 300 MG CAPSULE PO SCH ×2 (08:30→16:51)
[2020-10-25] MEDS: ENOXAPARIN 30 MG/0.3 ML SQ SCH (08:30)
[2020-10-25] MEDS: CEFTRIAXONE 1,000 MG in DEXTROSE 5% 50 ML IVPB SCH (08:30)
[2020-10-25] MEDS: PANTOPRAZOLE 40 MG IV IVPush SCH (08:30)
[2020-10-25] MEDS: SUCRALFATE 1 GM/10 ML UDC PO SCH ×3 (08:30→16:51)
[2020-10-25] MEDS: IRON SUCROSE COMPLEX 100MG/5ML IV SCH (08:31)
[2020-10-25] MEDS: LOSARTAN 50MG TABLET PO SCH (08:31)
[2020-10-25 12:37] VITALS: BP 140/83
[2020-10-25] MEDS ORDERED: SUCR1ORA5 PO (14:47)
[2020-10-25] MEDS ORDERED: LOSA50TA2 PO (14:47)
[2020-10-25] MEDS ORDERED: PANTOPRAZOLE 40MG TABLET PO SCH (16:48)
== END 2020-10-25 23:02 | disposition home or self-care (01) | DRG 689 ==
LOC: ED 17:48 → EDIP 21:26 → 3N 23:11
PROVIDERS: ADMIT Family Medicine; ATTEND Internal Medicine
DX: N30.00 Acute cystitis without hematuria (principal); K85.00 Idiopathic acute pancreatitis without necrosis or infection; E03.9 Hypothyroidism, unspecified; E88.09 Other disorders of plasma-protein metabolism, not elsewhere classified; I10 Essential (primary) hypertension; K21.9 Gastro-esophageal reflux disease without esophagitis; D50.9 Iron deficiency anemia, unspecified; Z87.11 Personal history of peptic ulcer disease; Z87.891 Personal history of nicotine dependence; Z98.84 Bariatric surgery status; Z90.49 Acquired absence of other specified parts of digestive tract
CPT/HCPCS: 36415; 74177; 80048; 80053; 81001; 82150; 82728; 83540; 83550; 83690; 83735; 84439; 84443; 84484; 85025; 87086; 93005; 96374; 96375; 99285; G0378; J0696; J1650; J1756; J2405; Q9967; C9113; J2270; J2765; J7030